=== PATIENT | female | born 1935 | race Caucasian/White ===

== ENCOUNTER → 2023-11-08 07:38 | Outpatient (REF) | payer MEDICARE, SELFPAY | LOC: EMG 07:38 | PROVIDERS: ATTENDING PHYSICIAN Orthopaedic Surgery Hand Surgery; FAMILY PHYSICIAN Family Medicine | DX: R20.0 Anesthesia of skin (principal); G56.02 Carpal tunnel syndrome, left upper limb | CPT/HCPCS: 95886; 95910 ==